=== PATIENT | female | born 1960 | race African-American/Black ===

== ENCOUNTER 2022-11-14 16:33 | Emergency (ER) | payer OTHER, SELFPAY ==
[2022-11-14 16:40] VITALS: BP 140/89; PULSE 78; RESP 18; TEMP 36.6; O2SAT 99
--- NOTE | 2022-11-14 16:48 | ED.GENADULT ---
HPI - General Adult General Chief complaint: Back Pain/Injury Stated complaint: Back Pain/Right Thigh,Leg Pain Time Seen by Provider: 11/14/22 16:48 Source: patient, RN notes reviewed and old records reviewed Mode of arrival: ambulatory Limitations: no limitations History of Present Illness HPI narrative: 62-year-old female presents to the [facility] with complaints of right lower back pain radiating down her leg. Patient states it hurts to move her hip. Denies any injury. No new numbness or tingling in extremities. No midline tenderness. No loss or retention of bowel or bladder uncontrolled Related Data Home Medications Medication Instructions Recorded Confirmed amlodipine 10 mg tablet mg 11/14/22 fluoxetine 20 mg capsule mg 11/14/22 folic acid 1 mg tablet 11/14/22 losartan 50 mg tablet mg 11/14/22 thiamine HCl (vitamin B1) 50 mg 50 mg PO DAILY 11/14/22 11/14/22 tablet Allergies Allergy/AdvReac Type Severity Reaction Status Date / Time No Known Allergies Allergy Verified 11/14/22 16:39 Review of Systems Review of Systems: All systems reviewed & are unremarkable except as noted in HPI and below Constitutional: Constitutional: Reports no additional constitutional complaints Eyes: Eyes: Reports no additional eye complaints ENT: Reports system reviewed and no additional complaints, except as documented Cardiovascular: Cardiovascular: Reports no additional cardiovascular complaints, Denies chest pain and Denies dyspnea Respiratory: Respiratory: Reports no additional respiratory complaints, Denies chest congestion, Denies cough and Denies dyspnea Gastrointestinal: Gastrointestinal: Reports no additional gastrointestinal complaints, Denies abdominal pain, Denies nausea and Denies vomiting Musculoskeletal: Musculoskeletal: Reports as per HPI Integumentary/Breasts: Skin/Breast: Reports system reviewed and no additional complaints, except as docu Neurologic: Reports system reviewed and no additional complaints, except as documented Psychiatric: Psychiatric: Reports no additional psychiatric complaints Allergic/Immunologic: Allergic/Immunologic: Reports no additional allergic/immunologic complaints PMFSH Past Medical History Medical History (Updated 11/14/22 @ 19:53 by Letitia George APRN) Anxiety and depression History of high blood pressure Comments At the time of my signature, I reviewed and agree with the nursing past medical, surgical, social, and family history. There is no relevant family history pertinent to the patient complaint. Exam Const: General: cooperative, healthy appearing, comfortable, no acute distress, well developed, alert and well nourished Nutritional Appearance: well nourished and obese Orientation/consciousness: patient oriented x3 Limitations: no limitations HENMT: Head: normal to inspection Ears: hearing grossly normal bilaterally and external ears normal Face/Nose/Sinus: Normal external nose present, Normal nares present, Normal nasal mucous membranes and turbinates present and normal facial exam Face and sinus: normal facial exam Mouth: Yes Normal oral and palatal mucosa present, Yes lip normal and Yes moist mucous membranes Throat: posterior oropharynx normal and uvula midline Eyes: General: appearance normal, both eyes and all related structures Alignment and Position: alignment normal Periorbital: periorbital findings normal Conjunctivae: conjunctivae normal Pupils: Equal, round and reactive pupils present EOM: EOMs intact bilaterally Neck: Neck: normal visual inspection, full ROM, no lymphadenopathy and no meningeal signs Chest: Chest palpation & inspection: normal inspection of the chest Resp: Effort & Inspection: normal respiratory effort and able to speak in complete sentences Auscultation: clear to auscultation bilaterally, no crackles, no rales, no rhonchi and no wheezes Cardio: Rate: regular rate Rhythm: regular rhythm Back/Spine/Pelvis: Back:
== END 2022-11-14 17:00 | disposition home or self-care (01) ==
PROVIDERS: Emergency Provider Nurse Practitioner; PCP Family Medicine
DX: M54.41 Lumbago with sciatica, right side (principal)
CPT/HCPCS: 99213; G0463

== ENCOUNTER 2025-03-19 12:16 | Emergency (ER) | payer OTHER, SELFPAY ==
[2025-03-19 12:26] VITALS: BP 174/107; PULSE 95; RESP 16; TEMP 36.9; O2SAT 99
--- NOTE | 2025-03-19 12:26 | ED.URI ---
HPI - URI/Sore Throat General Chief Complaint: Upper Respiratory Infection Stated Complaint: Upper Respiratory Time Seen by Provider: 03/19/25 12:40 Source: patient and RN notes reviewed Mode of arrival: ambulatory Limitations: no limitations History of Present Illness HPI Narrative: 64-year-old female presented for complaint of headache, body aches, generalized weakness, sinus pressure/congestion, cough, fever/chills. also reports left ear pain with cough. Symptom onset yesterday. Denies sob, wheezing, n/v/d. Took Ileana seltzer this morning. Pt with elevated BP on arrival, states she takes losartan sometimes, but has not been taking it regularly or the amlodipine due to issues with medical card. Denies chest pain, palpitations or swelling. MD elicited complaint: cough Related Data Allergies Allergy/AdvReac Type Severity Reaction Status Date / Time No Known Allergies Allergy Verified 03/19/25 12:39 Review of Systems Review of Systems: CONSTITUTIONAL: Endorses malaise, body aches, chills, sweats, fever EYES: Denies visual changes, redness, or discharge ENT: Reports rhinorrhea, congestion, sinus pain, otalgia, sore throat CARDIOVASCULAR: Denies chest pain, palpitations, edema RESPIRATORY: Reports cough, post nasal drainage. Denies dyspnea GASTROINTESTINAL: Denies abdominal pain, nausea, vomiting, diarrhea SKIN: Denies rash or itching NEUROLOGIC: Denies headache PMFSH Past Medical History Medical History (Updated 03/19/25 @ 12:50 by Alma Morgan, KERWIN) Anxiety and depression History of high blood pressure Exam Narrative: GENERAL: mildly Ill-appearing, nontoxic no acute distress. EYES: conjunctivae clear ENT: Mucous membranes moist. right TM pearly hernandez with dull light reflex; Left TM erythematous, bulging and intact; canal not erythematous, no drainage, no tragal tenderness. NECK: Supple. No lymphadenopathy CHEST: Clear to auscultation, breath sounds equal. No wheezing, rhonchi, rales, or stridor. No respiratory distress, speaks in full sentences. HEART: Regular rate and rhythm. SKIN: Warm, dry, no rash. NEURO: Alert and oriented x3. PSYCH: Normal mood and affect Course Course Emergency Course: Patient is aware of diagnosis, understands and agrees to treatment plan. Anticipatory guidance given. Patient agrees to follow-up as directed and is aware of reasons to seek care at the emergency department. Portions of this record may have been created with voice recognition software Level of Care: Express Care Visit Vital Signs Vital signs: Vital Signs Temperature 98.5 F 03/19/25 12:26 Pulse Rate 95 03/19/25 12:26 Respiratory Rate 16 03/19/25 12:26 Blood Pressure 174/107 H 03/19/25 12:26 Pulse Oximetry 99 03/19/25 12:26 Oxygen Delivery Room Air 03/19/25 12:26 Temperature 98.5 F 03/19/25 12:26 Pulse Rate 95 03/19/25 12:26 Respiratory Rate 16 03/19/25 12:26 Blood Pressure 174/107 H 03/19/25 12:26 Pulse Oximetry 99 03/19/25 12:26 Oxygen Delivery Room Air 03/19/25 12:26 reviewed MDM - URI/Sore Throat MDM Narrative Medical decision making narrative: Discussed physical exam findings. Positive COVID; left AOM. Shared decision-making, patient declined Paxlovid. Also discussed elevated BP in clinic, she takes medication sporadically. Advised f/u with pcp. Advised supportive measures and signs/symptoms to go to the ER. Pt is appropriate for outpt treatment and f/u. Differential Diagnosis Differential diagnosis: Likely upper respiratory infection, otitis media, sinusitis, viral infection, bronchitis, influenza and pharyngitis Discharge Plan Discharge Clinical Impression: COVID-19 Otitis media Qualifiers: Otitis media type: suppurative Chronicity: acute Laterality: left Recurrence: non-recurrent Spontaneous tympanic membrane rupture: without spontaneous rupture Qualified Code(s): H66.002 - Acute suppurative otitis media without spontaneous rupture of ear drum, left ear Patient Disposition: Home Condition: Stable Instructions: Ear Infection (ED), COVID-19 (Coronavirus Disease 2019) (ED) Additional Instructions: Ear infection: Take antibiotics as directed. Tylenol 1000mg every 8 hours as needed to reduce fever, pain Your rapid COVID test was positive today. The following updated recommendations have been made by the CDC and local Health Departments, regarding COVID-19: - When people get sick with a respiratory virus, they stay home and away from others. - Return to normal activities when, for at least 24 hours, symptoms are improving overall, and if a fever was present, it has been gone without use of a fever-reducing medication. - Once people resume normal activities, they are encouraged to take additional prevention strategies for the next 5 days to curb disease spread, such as taking more steps for tank car cleaner air, enhancing hygiene practices, wearing a well-fitting mask, keeping a distance from others, and/or getting tested for respiratory viruses. - Enhanced precautions are especially important to protect those most at risk for severe illness, including those over 65 and people with weakened immune systems. Rest, stay hydrated. Tylenol and ibuprofen every 8 hours as needed Flonase/nasal spray, Zyrtec, cough syrup cold/flu medications for symptoms as needed. Coricidin HBP if you have hypertension. Follow up with your primary care provider, call to schedule an appointment. Go to the ER for worsening symptoms or concerns. Patient Language: Congolese Prescriptions: New amoxicillin-pot clavulanate 875-125 mg tablet 1 tablet PO Q12H 7 Days Qty: 14 0RF Follow-up/Referrals: Pau,Tramaine Strong MD [Primary Care Provider] - Time of Disposition: 12:51
[2025-03-19 12:42] LABS: EDCOVIDSCREEN Positive (Negative); EDINFLUASCREEN Negative (Negative); EDINFLUBSCREEN Negative (Negative)
== END 2025-03-19 12:53 | disposition home or self-care (01) ==
PROVIDERS: Emergency Provider Nurse Practitioner Family; PCP Family Medicine
DX: U07.1 COVID-19 (principal); H66.002 Acute suppurative otitis media without spontaneous rupture of ear drum, left ear; I10 Essential (primary) hypertension
CPT/HCPCS: 87426; 87804; 99213; G0463